=== PATIENT | female | born 1990 | race Caucasian/White ===

== ENCOUNTER 2019-09-13 13:31 | Emergency (ER) | payer SELFPAY ==
[~2019-09-13] VITALS: Ht 157.5 cm; Wt 79.4 kg
--- NOTE | 2019-09-13 13:40 | NUR ---
Admit a 29 yo female, ambulatory, with a c/o feeling weak and short winded at work. Pt is awake, alert and orientedx3. BP is 146/84. O2 sat is 98% on RA.
[2019-09-13] MEDS ORDERED: LORAZEPAM 1 MG TABLET ONE (13:56)
--- NOTE | 2019-09-13 13:56 | NUR ---
Medicated with Ativan 2mg po as per MD order.
[2019-09-13] MEDS ORDERED: LORAZEPAM 0.5 MG TABLET PO ONE (14:00)
--- NOTE | 2019-09-13 14:00 | NUR ---
Seen and examined by MD with new order.
[2019-09-13 14:04] LABS: BASOPHILS # (AUTO) 0.1 K/uL (0.0-8.0); BASOPHILS % (AUTO) 0.8 % (0.0-2.0); EOSINOPHILS # (AUTO) 0.3 K/uL (0.0-0.7); EOSINOPHILS % (AUTO) 3.8 % (0.0-7.0); HEMATOCRIT 39.1 % (31.2-41.9); HEMOGLOBIN 13.1 g/dL (10.9-14.3); LYMPHOCYTES # (AUTO) 2.8 K/uL (20.0-40.0); LYMPHOCYTES % (AUTO) 36.6 % (20.5-51.5); MEAN CORPUSCULAR HGB CONC 34 g/dL (32.3-35.6); MEAN CORPUSCULAR VOLUME 89.6 fL (75.5-95.3); MONOCYTES # (AUTO) 0.6 K/uL (2.0-10.0); MONOCYTES % (AUTO) 7.4 % (0.0-11.0); NEUTROPHILS # (AUTO) 3.9 K/uL (1.8-8.9); NEUTROPHILS % (AUTO) 51.4 % (38.5-71.5); PLATELET COUNT (AUTO) 277 K/uL (179-408); RED BLOOD CELL COUNT(AUTO) 4.36 MIL/uL (3.63-4.92); WHITE BLOOD COUNT (AUTO) 7.6 K/uL (3.8-11.8)
[2019-09-13 14:11] LABS: CREATININE 0.8 mg/dL (0.6-1.3); POTASSIUM 3.8 mmol/L (3.5-5.1)
[2019-09-13 14:17] LABS: BILIRUBIN,DIRECT 0.1 mg/dL (0.0-0.2); BILIRUBIN,TOTAL 0.2 mg/dL (0.2-1.0); TOTAL PROTEIN, SERUM 7.1 g/dL (6.4-8.2)
--- NOTE | 2019-09-13 14:45 | NUR ---
Discharge instruction and prescription given to pt with good understanding. Discharged home ambulatory. Latest BP is 118/55. Condition is stable.
--- NOTE | 2019-09-13 14:45 | NUR ---
Instructed pt not to drive and she understood and amenable.
[2019-09-13 14:55] VITALS: BP 118/55
== END 2019-09-13 14:45 | disposition home or self-care (01) ==
LOC: ER 13:31
DX: F41.9 Anxiety disorder, unspecified (principal)
CPT/HCPCS: 36415; 83690; 85025; A4663

== ENCOUNTER 2020-05-13 09:59 | Emergency (ER) | payer SELFPAY ==
[~2020-05-13] VITALS: Ht 154.9 cm; Wt 77.1 kg
--- NOTE | 2020-05-13 10:07 | NUR ---
Dr. Hopper at bedside for MSE
[2020-05-13] MEDS ORDERED: LORAZEPAM 0.5 MG TABLET PO ONE (10:15)
[2020-05-13] MEDS ORDERED: LORAZEPAM 1 MG TABLET ONE (10:18)
--- NOTE | 2020-05-13 10:43 | NUR ---
Patient discharged to home in stable condition. Written and verbal after care instructions given. Patient verbalizes understanding of instructions. Stressed follow up or return to ER for worsening s/s. Patient ambulating with steady gait. Denies any dizziness or nausea. Patient in waiting area waiting for friend to pick her up
[2020-05-13 11:01] VITALS: BP 128/73
== END 2020-05-13 10:43 | disposition home or self-care (01) ==
LOC: ER 09:59
DX: F41.9 Anxiety disorder, unspecified (principal)
CPT/HCPCS: A4663